=== PATIENT | male | born 1975 | race Caucasian/White ===

== ENCOUNTER 2020-01-26 07:29 | Inpatient (IN) | payer OTHER ==
[~2020-01-26] VITALS: Ht 182.9 cm; Wt 88.5 kg
--- NOTE | 2020-01-26 07:31 | NUR ---
TAKEN TO BED 11 VIA W/C
[2020-01-26 07:33] VITALS: BP 142/77
--- NOTE | 2020-01-26 07:44 | NUR ---
PT C/O ABD PAIN IN THE RT LOWER QUAD. PT STATES PAIN IS A 9/10 WHEN PALPATED. PT DENIES N/V/D. PAIN STARTED YESTEDAY. PT STATED HE TOOK A GAS MED LAST NIGHT; UNABLE TO RECALL NAME AND DOSAGE. LAST BM: 01/25/20 PM. BOWEL SOUNDS PRESENT IN ALL QUADS. RT LOWER QUAD IS TENDER TO TOUCH. ABD APPEARS TO BE ROUND, DISTENDED. SOFT TO TOUCH. NO PMHX NKA/NKDA
[2020-01-26] MEDS ORDERED: NACL 0.9% 1,000 ML IV SCH (07:55)
[2020-01-26] MEDS ORDERED: MORPHINE SULFATE 4 MG/ML SYR IVP ONE (07:55)
--- NOTE | 2020-01-26 08:15 | NUR ---
LAB AT BEDSIDE
[2020-01-26 08:21] LABS: BASOPHILS # (AUTO) 0.1 K/uL (0.00-0.22); BASOPHILS % (AUTO) 0.6 % (0.0-2.0); EOSINOPHILS # (AUTO) 0.1 K/uL (0-0.4); EOSINOPHILS % (AUTO) 0.9 % (0.0-4.0); HEMATOCRIT 43.8 % (36-52); HEMOGLOBIN 14.7 g/dL (12.0-18.0); LYMPHOCYTES # (AUTO) 1.7 K/uL (2.0-11.5); LYMPHOCYTES % (AUTO) 12.7 % (20.5-51.1); MEAN CORPUSCULAR HEMOGLOBIN 30 pg (27-31); MEAN CORPUSCULAR HGB CONC 33 g/dL (33-37); MEAN CORPUSCULAR VOLUME 89.5 fL (80-94); MONOCYTES # (AUTO) 1.2 K/uL (0.8-1.0); MONOCYTES % (AUTO) 8.6 % (1.7-9.3); NEUTROPHILS # (AUTO) 10.3 K/uL (1.8-7.7); NEUTROPHILS % (AUTO) 77.2 % (42.2-75.2); PLATELET COUNT (AUTO) 226 K/uL (140-450); RED CELL DISTRIBUTION WIDTH 14.2 % (11.6-13.7); WHITE BLOOD COUNT (AUTO) 13.3 K/uL (4.8-10.8)
--- NOTE | 2020-01-26 08:23 | NUR ---
20G IV PLACED TO RT AC, PT TOLERATED WELL
[2020-01-26 08:26] LABS: APPEARANCE,URINE CLEAR (CLEAR); BILIRUBIN,URINE NEGATIVE (NEGATIVE); BLOOD, URINE NEGATIVE (NEGATIVE); COLOR,URINE YELLOW (YELLOW); LEUKOCYTE ESTERASE ,URINE NEGATIVE (NEGATIVE); NITRITE, URINE NEGATIVE (NEGATIVE); UGLUCOSE NEGATIVE (NEGATIVE)
--- NOTE | 2020-01-26 08:26 | NUR ---
Angie stallworth in [facility] - 01/26/20 at 0901 by CHRISTIANE PT TAKEN TO CT VIA WHEELCHAIR.
--- NOTE | 2020-01-26 08:26 | NUR ---
PT TAKEN TO CT VIA RSHANNAN.
[2020-01-26] MEDS ORDERED: NACL 0.9% 1,000 ML IV ONE ×2 (08:35→09:10)
--- NOTE | 2020-01-26 08:39 | NUR ---
PT RETURNED FROM CT VIA [facility]
[2020-01-26 09:01] LABS: ALBUMIN 3.4 g/dL (3.4-5.0); ANION GAP 15.5 (8-16); CARBON DIOXIDE 24.6 mmol/L (21-32); CREATININE 1.1 mg/dL (0.6-1.3); POTASSIUM 4.1 mmol/L (3.5-5.1); TOTAL BILIRUBIN 0.3 mg/dL (0.0-1.0)
[2020-01-26] MEDS ORDERED: PIPERACILLIN/TAZOBACTAM 3.375 GM VIAL IV ONE (09:05)
[2020-01-26] MEDS ORDERED: PIPERACILLIN/TAZOBACTAM 3.375 GM in DEXTROSE 5% 50 ML IV ONE (09:05)
[2020-01-26] MEDS ORDERED: MORPHINE SULFATE 4 MG/ML SYR IVP PRN (09:10)
[2020-01-26] MEDS ORDERED: ONDANSETRON 4 MG/2 ML VIAL IVP PRN ×2 (09:10→11:20)
--- NOTE | 2020-01-26 09:25 | NUR ---
PT IS RESTING IN BED. EYES CLOSED. R/R EVEN AND UNLABORED. PT IS MOANING PERIODICALLY IN PAIN. MEDS WERE GIVEN FOR PAIN. PT STATES PAIN IS 7/10.
[2020-01-26 09:40] VITALS: BP 151/95
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
--- NOTE | 2020-01-26 09:48 | NUR ---
Patient will be admitted to care of DR. FIGUEROA. Admited to [facility]. Will go to room 120B. Belongings list completed. Report to CLARENCE LANDON.
--- NOTE | 2020-01-26 10:05 | NUR ---
SPOKE TO DR LUONG ABOUT PATIENT'S PAIN. PATIENT HAD RECEIVED MORPHINE 4MG IN THE ED AT 0830, BP 151/95 HR 95 RR 16 99% 98.1. DR LUONG GAVE TELEPHONE ORDER FOR MORPHINE 4MG IVP Q2H FOR SEVERE PAIN AND GIVE ONE DOSE NOW THEN Q2H THEREAFTER. TELEPHONE ORDER READ BACK AND CONFIRMED. ORDER CARRIED OUT.
[2020-01-26] MEDS: MORPHINE SULFATE 4 MG/ML SYR IVP PRN (10:18)
--- NOTE | 2020-01-26 10:20 | NUR ---
SPOKE TO DR. COOL. CONSENT FORM OBTAINED AND SIGNED FOR LAPAROSCOPIC WITH POSSIBLE OPEN APPENDECTOMY.
--- NOTE | 2020-01-26 10:45 | NUR ---
PATIENT TO OR IN STABLE CONDITION. WILL CONTINUE TO MONITOR.
[2020-01-26] MEDS ORDERED: KETOROLAC 30 MG/ML VIAL ONE (10:58)
[2020-01-26] MEDS ORDERED: PROPOFOL 200 MG/20 ML VIAL IV ONE (10:58)
[2020-01-26] MEDS ORDERED: HYDROmorphone PFS 2 MG/ML SYR ONE (10:58)
[2020-01-26] MEDS ORDERED: ONDANSETRON 4 MG/2 ML VIAL ONE (10:58)
[2020-01-26] MEDS ORDERED: SUCCINYLCHOLINE CHLORIDE 200 MG/10 ML VIAL IVP ONE (10:58)
[2020-01-26] MEDS ORDERED: DESFLURANE 240 ML BTL INH ONE (10:58)
[2020-01-26] MEDS ORDERED: DEXAMETHASONE 4 MG/ML VIAL ONE (10:58)
[2020-01-26] MEDS ORDERED: HYDROmorphone 1 MG/ML AMP IVP PRN (11:20)
[2020-01-26] MEDS ORDERED: BUPIVACAINE-MPF/EPI 0.5% 30 ML VIAL INJ ONE (12:23)
--- NOTE | 2020-01-26 12:50 | NUR ---
PATIENT CAME BACK FROM OR FOR LAP APPENDECTOMY. IN STABLE CONDITION. 97.9 84 16 128/58 92% ON RA. PATIENT DENIES OF PAIN AT THIS TIME. PATIENT CAME BACK WITH 3 INCISIONS ON ABDOMEN, DRESSING IN PLACE AND INTACT. BED IN LOW POSITION, CALL LIGHT WITHIN REACH. WILL CONTINUE TO MONITOR.
--- NOTE | 2020-01-26 14:00 | NUR ---
DC PLANNIN YRS OLD MALE PATIENT WAS ADMITTED FROM HOME WITH A DX OF APPENDICITIS. PT HAS NO MEDICAL HISTORY. CT ABD/PELVIS SHOWED ACUTE APPENDICITIS. ADMINISTERED IVF IV ABX WITH AND PAIN MANAGEMENT CONSULTED WITH SURGEON DR COOL FOR POSSIBLE APPENDECTOMY. DC PLAN TO GO HOME WHEN STABLE CM TO FOLLOW Addendum: 01/29/20 at 1207 by Jailene Patel CM DC PLANNING: S/P POD#2 MISAEL APPY , C/O ABD PAIN ADVANCED DIET TO SOFT DIET ENCOURAGE OOB/AMBULATE AND TO US FREQUENT INCENTIVE SPIROMETER. ORDERED KUB FOR S/P SURGERY AND ABD PAIN. DC PLAN TO GO HOME WHEN STABLE CM TO FOLLOW
--- NOTE | 2020-01-26 14:10 | NUR ---
PATIENT IS RESTING COMFORTABLY IN BED. INCISION SITES COVER WITH DRESSING, SCANT AMOUNT OF DRAINAGE NOTED, NO ACTIVE BLEEDING. VITALS REMAIN WNL. 98.4 92 18 116/75 91% RA. PATIENT DENIES ANY PAIN AT THIS TIME. CALL LIGHT WITHIN REACH. ENCOURAGED TO USE CALL LIGHT NEEDED. WILL CONTINUE TO MONITOR.
[2020-01-26] MEDS: PIPERACILLIN/TAZOBACTAM 4.5 GM in DEXTROSE 5% 100 ML IV SCH ×2 (17:32→23:07)
--- NOTE | 2020-01-26 17:32 | NUR ---
PATIENT IS RESTING COMFORTABLY IN BED. EASILY AROUSABLE. FOLLOWS COMMAND. DENIES OF ANY PAIN AT THIS TIME. ZOSYN ADMINISTERED IVPB ORDERED. CALL LIGHT WITHIN REACH. WILL CONTINUE TO MONITOR.
--- NOTE | 2020-01-26 18:30 | NUR ---
PATIENT IS AWAKE AND ALERT. SITTING COMFORTABLY IN BED. PATIENT TOLERATED FULL LIQUID DIET WELL. NO NOTED DISTRESS. PATIENT C/O PAIN BUT TOLERABLE. DRESSINGS CLEAN AND INTACT. CALL LIGHT WITHIN REACH. WILL CONTINUE TO MONITOR.
--- NOTE | 2020-01-26 19:27 | NUR ---
ENDORSED PATIENT TO NIGHT NURSE. PATIENT IN STABLE CONDITION.
--- NOTE | 2020-01-26 19:28 | NUR ---
RECEIVED REPORT FROM DAY SHIFT NURSE. PT IS SITTING IN BED WITH HOB SLIGHTLY ELEVATED. PT AWAKE, ALERT, AND ORIENTED. RESPIRATIONS ARE EVEN AND UNLABORED TO ROOM AIR. SKIN IS WARM AND DRY. ABDOMEN IS SOFT AND NON-TENDER. S/P LAP APPENDECTOMY EARLIER TODAY. 3 INCISION SITES NOTED ON ABDOMEN. DRESSING IS DRY AND INTACT. NO S/SX OF INFECTION NOTED. IV ACCESS ON R AC G20 PATENT AND INTACT. IVF INFUSING WELL. PLAN OF CARE DISCUSSED. PT VERBALIZED UNDERSTANDING. PT DENIES ANY PAIN OR DISCOMFORT AT THIS TIME. SAFETY MEASURES IN PLACE. CALL LIGHT WITHIN REACH. WILL CONTINUE TO MONITOR.
--- NOTE | 2020-01-26 20:58 | NUR ---
ROUNDS MADE. PT IN BED WATCHING TV. DENIES ANY PAIN OR DISCOMFORT AT THIS TIME. PT PROVIDED WITH JELLO REQUESTED. CALL LIGHT WITHIN REACH. WILL CONTINUE TO MONITOR.
[2020-01-26] MEDS: MORPHINE SULFATE 2 MG/ML SYR IVP PRN (22:10)
--- NOTE | 2020-01-26 22:10 | NUR ---
PT COMPLAINS OF ABD PAIN 02/26. PRN PAIN MEDICATION GIVEN ORDERED. WILL CONTINUE TO MONITOR.
--- NOTE | 2020-01-26 23:50 | NUR ---
VITAL SIGNS STABLE. SCHEDULED MEDS GIVEN ORDERED. NO COMPLAINS OF PAIN. PT KEPT COMFORTABLE. SAFETY MEASURES IN PLACE. CALL LIGHT WITHIN REACH. WILL CONTINUE TO MONITOR.
[2020-01-27] VITALS: BP 111/70
--- NOTE | 2020-01-27 01:54 | NUR ---
PT ASLEEP. RESPIRATIONS EVEN AND UNLABORED. NOT IN DISTRESS. PT KEPT COMFORTABLE. SAFETY MEASURES IN PLACE. CALL LIGHT WITHIN REACH. WILL CONTINUE TO MONITOR.
[2020-01-27] MEDS: MORPHINE SULFATE 2 MG/ML SYR IVP PRN ×2 (03:33→08:20)
--- NOTE | 2020-01-27 03:33 | NUR ---
PT COMPLAINS OF ABD PAIN. PRN PAIN MEDICATION GIVEN ORDERED. WILL CONTINUE TO MONITOR.
[2020-01-27] MEDS: PIPERACILLIN/TAZOBACTAM 4.5 GM in DEXTROSE 5% 100 ML IV SCH ×3 (05:04→17:17)
--- NOTE | 2020-01-27 05:08 | NUR ---
SCHEDULED ANTIBIOTIC GIVEN ORDERED. NO COMPLAINS OF PAIN MADE AT THIS TIME. CALL LIGHT WITHIN REACH. WILL CONTINUE TO MONITOR.
--- NOTE | 2020-01-27 07:23 | NUR ---
ENDORSED TO DAY SHIFT NURSE FOR CONTINUITY OF CARE. PATIENT IN STABLE CONDITION.
--- NOTE | 2020-01-27 07:24 | NUR ---
RECEIVED PATIENT FROM LEAN COACH NURSE FOR CONTINUITY OF CARE. PATIENT IS AAOX4. KAZAKH SPEAKING. RESPIRATIONS EVEN AND UNLABORED, ROOM AIR. VISIBLE CHEST RISE AND FALL NOTED. ON MED-SURGE. ABDOMEN SOFT AND NONTENDER. ON A FULL LIQUID DIET. SKIN WARM AND S/P LAP APPENDECTOMY. 3 INCISIONS NOTED WITH BANDAID COVERINGS. IV ON LEFT AC G20, SALINE LOCK. UNIVERSAL FALL PRECAUTION. BED IN LOW POSITION. CALL LIGHT IS WITHIN REACH. WILL CONTINUE TO MONITOR.
[2020-01-27 08:00] VITALS: BP 105/58
--- NOTE | 2020-01-27 09:28 | NUR ---
EMERGENCY WORKER NOTE: Basic Screen: Yes High Risk DC Screen [place]: DEMAR CESPEDES Home Relationship: MOTHER Pre-Admission Living Arrangements: Lives with Other Prior ADL Independent Current Home Health Name/Tel: N/A Current DME/02 Name/Tel: N/A Current Hospice Name/Tel: N/A Current Dialysis Name/Tel: N/A Healthcare Decision Maker: Patient Advance Directive No Physician Orders for Life Sustaining Treatment Form No Patient/Family Have Educational Needs No Discipline: Case Mgt/Social Svcs Tentative Discharge Plan/Destination: No Needs Identified Will require assistance post discharge: No Referred to Manager Environmental Services: No Tentative Discharge Plan Summary: PATIENT IS A 44-YEAR-OLD MALE ADMITTED FOR ACUTE APPENDICITIS. PATIENT HAS NO PERTINENT PMHX. PATIENT WAS ADMITTED FROM HOME WHERE HE LIVES ALONE. SW CONTACTED PATIENT'S MOTHER: DEMAR CESPEDES [phone]. PER DEMAR, PATIENT IS INDEPENDENT WITH ADLS AND IS ALERT/ORIENTED AT BASELINE. DEMAR REPORTED NO HISTORY OF SUBSTANCE ABUSE OR MENTAL HEALTH. TENTATIVE DISCHARGE PLAN IS FOR PATIENT TO RETURN HOME. NO FURTHER NEEDS IDENTIFIED. Signature: MOOKIE CHRISTIAN Date: Jan 27, 2020 Time: 09:26
--- NOTE | 2020-01-27 09:30 | NUR ---
C/O ABDOMINAL PAIN OF /10. PATIENT IS MOANING AND FACIAL GRIMACING. GIVEN MORPHINE IVP. EXPLAINED MEDICATION. WILL REASSESS FOR PAIN
[2020-01-27] MEDS: MORPHINE SULFATE 4 MG/ML SYR IVP PRN ×4 (10:27→20:53)
--- NOTE | 2020-01-27 10:27 | NUR ---
GIVEN MORPHINE FOR ABDOMINAL PAIN OF 03/29. BP IS 131/78, HR 84, O2SAT 97%. EXPLAINED MEDICATION. WILL REASSESS FOR PAIN
--- NOTE | 2020-01-27 10:46 | NUR ---
PATIENT HAS BEEN SCREENED AND CATEGORIZED LOW NUTRITION RISK. PATIENT WILL BE SEEN WITHIN 7 DAYS OF ADMISSION. 02/01/[address]
--- NOTE | 2020-01-27 11:16 | NUR ---
ROSELYN HORN VIA IVPB. PATIENT ASLEEP. BED IN LOW POSITION. CALL LIGHT IS WITHIN REACH. WILL CONTINUE TO MONITOR.
--- NOTE | 2020-01-27 13:05 | NUR ---
GIVEN MORPHINE FOR 9/10 ABDOMINAL PAIN. PATIENT IS MOANING AND RESTLESS. RESP 20. BED IN LOW POSITION. CALL LIGHT IS WITHIN REACH. WILL REASSESS PAIN
--- NOTE | 2020-01-27 13:38 | NUR ---
PER DR. ALVIN RAND, PATIENT WILL STAY ONE MORE DAY UNTIL PAIN IS CONTROLLED.
--- NOTE | 2020-01-27 14:16 | NUR ---
LAB AT BESIDE. TRYING TO GET BLOOD SAMPLE, PATIENT IS VERY HARD STICK Addendum: 01/27/20 at 1438 by Princess Helena John RN LAB WAS ABLE TO DRAW BLOOD.
--- NOTE | 2020-01-27 14:36 | NUR ---
WOUND ASSESSMENT DONE. JAEL INTACT TO 3 INCISIONS. CLEANED WITH NS, PAT DRIED, NEW BANDAID APPLIED. PATIENT TOLERATED FAIRLY. PATIENT AWARE ABOUT THE PLAN THAT HE WILL STAY ONE MORE NIGHT UNTIL PAIN IS CONTROLLED. PATIENT VERBALIZED UNDERSTANDING.
[2020-01-27 14:37] LABS: BASOPHILS # (AUTO) 0.1 K/uL (0.00-0.22); BASOPHILS % (AUTO) 0.5 % (0.0-2.0); HEMATOCRIT 41.8 % (36-52); LYMPHOCYTES # (AUTO) 1.2 K/uL (2.0-11.5); LYMPHOCYTES % (AUTO) 7.6 % (20.5-51.1); MEAN CORPUSCULAR HEMOGLOBIN 30 pg (27-31); MEAN CORPUSCULAR HGB CONC 34 g/dL (33-37); MEAN CORPUSCULAR VOLUME 89.6 fL (80-94); MONOCYTES # (AUTO) 1.2 K/uL (0.8-1.0); MONOCYTES % (AUTO) 7.7 % (1.7-9.3); NEUTROPHILS # (AUTO) 13.5 K/uL (1.8-7.7); NEUTROPHILS % (AUTO) 84.2 % (42.2-75.2); PLATELET COUNT (AUTO) 228 K/uL (140-450); RED BLOOD CELL COUNT(AUTO) 4.66 MIL/uL (4.20-6.10); RED CELL DISTRIBUTION WIDTH 14.2 % (11.6-13.7)
[2020-01-27 14:48] LABS: ALBUMIN 2.9 g/dL (3.4-5.0); ANION GAP 11.3 (8-16); CARBON DIOXIDE 27.7 mmol/L (21-32); CREATININE 1.2 mg/dL (0.6-1.3)
[2020-01-27 16:00] VITALS: BP 146/82
--- NOTE | 2020-01-27 16:26 | NUR ---
PATIENT IS ASLEEP AT THIS TIME. VISIBLE CHEST RISE AND FALL NOTED. BED IN LOW POSITION. CALL LIGHT IS WITHIN REACH. WILL CONTINUE TO MONITOR
--- NOTE | 2020-01-27 17:18 | NUR ---
ROSELYN HORN VIA IVPB. GIVEN MORPHINE IVP FOR ABD PAIN OF 03/29. RESP 18, UNLABORED. WILL REASSESS FOR PAIN.
--- NOTE | 2020-01-27 18:19 | NUR ---
PAIN REASSESSMENT. PATIENT IS ASLEEP.
--- NOTE | 2020-01-27 19:13 | NUR ---
ENDORSED PATIENT TO THE STEM MOUNTER NURSE FOR CONTINUITY OF CARE. PATIENT IS IN STABLE CONDITION.
--- NOTE | 2020-01-27 19:32 | NUR ---
RECEIVED PT ASLEEP, EASILY AROUSABLE, DENIES PAIN, ABDOMINAL INCISION X3 COVERED WITH DRESSING, DRY AND INTACT, NO SIGNS OF BLEEDING OR DISCHARGE NOTED, PLAN OF CARE DISCUSSED, SAFETY MEASURES IN PLACE, CALL LIGHT WITHIN REACH.
--- NOTE | 2020-01-27 20:55 | NUR ---
PT FOUND BY KILO JAIMES LYING DOWN ON THE FLOOR, PT AAOX4, STATED HIS BACK IS ACHY AND LYING DOWN ON THE COLD FLOOR MADE IT BETTER, ASSISTED BACK TO BED, VITAL SIGNS TAKEN:BP-144/85, HR-103, RR-25, SAT-91%, PUT ON O2 2L NC, MEDICATED PRN WITH MORPHINE IVP FOR PAIN, ABDOMINAL DRESSING DRY AND INTACT, BED ALARM ON, REINFORCED TO CALL FOR ASSISTANCE, VERBALIZED UNDERSTANDING.
--- NOTE | 2020-01-27 21:45 | NUR ---
PT ASLEEP, NO DISTRESS NOTED, REPORT GIVEN TO SHIRLEY PATEL FOR CONTINUITY OF CARE.
--- NOTE | 2020-01-27 21:45 | NUR ---
RECD RESTING IN BED ASLEEP BUT EASILY WAKES UP WHEN NAME CALLED. IV OF NS INFUSING AT 10 ML/HR, LEFT AC G20. PATIENT REFUSING TO PUT ON HOSPITAL GOWN. NOTED TATTOOS ALL OVER THE BODY. S/P LAP CHOLECYSTOSTOMY, INCISION IN THE ABDOMEN (3) WITH DRESSING ALL DRY AND INTACT. TOLERATING FULL LIQUID DIET, VOIDING WELL. NO APPEARANCE OF PAIN NOTED 0/10.
--- NOTE | 2020-01-28 | NUR ---
SLEEPING COMFORTABLY IN BED.
[2020-01-28] MEDS: PIPERACILLIN/TAZOBACTAM 4.5 GM in DEXTROSE 5% 100 ML IV SCH ×5 (00:02→23:33)
--- NOTE | 2020-01-28 02:00 | NUR ---
RESTING IN BED, WAKEN UP PATIENT. INQUIRED IF HE IS PASSING GAS, ABDOMEN SEEMS DISTENDED BUT WITH POSITIVE BOWEL SOUNDS. STATED HE IS JUST BURPING. ENCOURAGED TO AMBULATED MORE AFTER BREAKFAST IN THE MORNING.
[2020-01-28 02:55] VITALS: BP 140/88
[2020-01-28] MEDS: MORPHINE SULFATE 4 MG/ML SYR IVP PRN ×4 (02:55→21:38)
--- NOTE | 2020-01-28 06:21 | NUR ---
TEMPERATURE - 101.5F, MEDICATED WITH TYLENOL PER MD ORDER. COOLING MEASURES GIVEN. Addendum: 01/28/20 at 0802 by Dolores Lozada LVN CORRECTION: THIS CHARTING IS NOT FOR THIS PATIENT.
--- NOTE | 2020-01-28 06:30 | NUR ---
STILL SLEEPING COMFORTABLY IN BED. COMPLAINT OF ABDOMINAL PAIN ATTENDED PROMPTLY, MEDICATED ORDERED. WILL ENDORSE TO AM SHIFT NURSE FOR CONTINUITY OF CARE.
[2020-01-28 06:38] VITALS: BP 140/93
[2020-01-28 07:05] LABS: BASOPHILS # (AUTO) 0.1 K/uL (0.00-0.22); BASOPHILS % (AUTO) 0.5 % (0.0-2.0); EOSINOPHILS % (AUTO) 0.1 % (0.0-4.0); HEMATOCRIT 42.4 % (36-52); HEMOGLOBIN 14.5 g/dL (12.0-18.0); LYMPHOCYTES # (AUTO) 1.5 K/uL (2.0-11.5); LYMPHOCYTES % (AUTO) 8.5 % (20.5-51.1); MEAN CORPUSCULAR HEMOGLOBIN 31 pg (27-31); MEAN CORPUSCULAR HGB CONC 34 g/dL (33-37); MEAN CORPUSCULAR VOLUME 89.2 fL (80-94); MONOCYTES # (AUTO) 1.5 K/uL (0.8-1.0); MONOCYTES % (AUTO) 8.9 % (1.7-9.3); NEUTROPHILS # (AUTO) 14.2 K/uL (1.8-7.7); PLATELET COUNT (AUTO) 258 K/uL (140-450); RED BLOOD CELL COUNT(AUTO) 4.75 MIL/uL (4.20-6.10); RED CELL DISTRIBUTION WIDTH 14.2 % (11.6-13.7); WHITE BLOOD COUNT (AUTO) 17.3 K/uL (4.8-10.8)
--- NOTE | 2020-01-28 07:25 | NUR ---
RECEIVED PATIENT FROM SPEEDBOAT DRIVER NURSE FOR CONTINUITY OF CARE. PATIENT IS AAOX4. JAPANESE SPEAKING. RESPIRATIONS EVEN AND UNLABORED, ROOM AIR. VISIBLE CHEST RISE AND FALL NOTED. ON MED-SURGE. ABDOMEN SOFT. ON A FULL LIQUID DIET. SKIN WARM AND S/P LAP APPENDECTOMY. 3 INCISIONS NOTED WITH DRESSING COVERINGS. IV ON LEFT AC G20, NS AT 10 ML/HR, KVO. UNIVERSAL FALL PRECAUTION. BED IN LOW POSITION. CALL LIGHT IS WITHIN REACH. WILL CONTINUE TO MONITOR.
[2020-01-28 08:16] LABS: ANION GAP 14.1 (8-16); CARBON DIOXIDE 26.9 mmol/L (21-32)
[2020-01-28 08:17] LABS: CREATININE 1.1 mg/dL (0.6-1.3)
[2020-01-28 08:23] LABS: ALBUMIN 2.6 g/dL (3.4-5.0); TOTAL BILIRUBIN 1.1 mg/dL (0.0-1.0)
--- NOTE | 2020-01-28 09:47 | NUR ---
PATIENT IS SLEEPING AT THIS TIME. NO SIGNS OF DISTRESS NOTED. BED IN LOW POSITION. CALL LIGHT IS WITHIN REACH. WILL CONTINUE TO MONITOR.
--- NOTE | 2020-01-28 12:09 | NUR ---
HANG ZOSYN VIA IVPB. EXPLAINED MEDICATION. WILL CONTINUE TO MONITOR.
--- NOTE | 2020-01-28 12:56 | NUR ---
PT AMBULATING AROUND THE UNIT; DENIES DIZZINESS
--- NOTE | 2020-01-28 13:19 | NUR ---
HANG NS AT 100 ML PER HOUR PER MD ORDER.
[2020-01-28] MEDS: NACL 0.9% 1,000 ML IV SCH ×2 (13:27→23:34)
--- NOTE | 2020-01-28 15:00 | NUR ---
PATIENT ASLEEP AT THIS TIME. NO SIGNS OF DISTRESS NOTED. BED IN LOW POSITION. CALL LIGHT IS WITHIN REACH. WILL CONTINUE TO MONITOR
[2020-01-28 16:00] VITALS: BP 142/82
--- NOTE | 2020-01-28 16:18 | NUR ---
PATIENT STATED PAIN 8 OUT OF 10. MORPHINE 4 MG WAS ADMINISTERED. PATIENT TOLERATED MEDICATION WELL.
--- NOTE | 2020-01-28 17:52 | NUR ---
PIGGYBACK ZOSYN INFUSING AT 200 ML PER HOUR PER MD ORDER.
--- NOTE | 2020-01-28 18:35 | NUR ---
PATIENT IS EATING DINNER AT THIS TIME. HE STATED HE IS TRYING TO EAT MUCH HE COULD.
--- NOTE | 2020-01-28 19:11 | NUR ---
ENDORSED PATIENT TO THE WAFER POLISHING LEAD WORKER NURSE FOR CONTINUITY OF CARE. PATIENT IS AT THE RESTROOM TRYING TO HAVE A BM PER PATIENT. PATIENT IS IN STABLE CONDITION.
--- NOTE | 2020-01-28 19:35 | NUR ---
RECEIVED REPORT FROM AM RN REGARDING THE PT FOR CONTINUITY OF CARE. RECEIVED PATIENT ASLEEP BUT EASY TO AROUSED. NO C/O PAIN AT THIS TIME. S/P LAP APPY,DAY 2 WITH 3 TROCAR SITES DRESSING ALL C/D/I. PATIENT ABDOMEN IS DISTENDED AND RIGID. BOWEL SOUNDS IS HYPOACTIVE. PER PATIENT HE HASN'T PASS GAS AND NO BM YET BUT BURPING SOMETIMES. EDUCATED THE PATIENT TO GET OOB AND WALK IN THE HALLWAY AND MADE AWARE OF THE BENEFITS OF GETTING OOB AND MOVING INSTEAD OF JUST LAYING IN BED. PT VERBALIZED UNDERSTANDING AND STATED HE WALKED IN THE HALLWAY EARLIER X1. PT IS ON FULL LIQUID DIET BUT NOT EATING MUCH PER DAY RN. I ASKED THE PATIENT WHY IS HE NOT EATING PER PATIENT HE FEELS BLOATED AND FULL. WILL CALL MD FOR PRN MEDS FOR BLOATING. IVF INFUSING ORDERED. PT VERBALIZED UNDERSTANDING WITH THE POC. CALL LIGHT WITHIN REACH.WILL CONTINUE POC.
--- NOTE | 2020-01-28 21:40 | NUR ---
PT COMPLAINING OF ABDOMINAL PAIN 04/29, PRN MORPHINE 4 MG IV GIVEN ORDERED. BP- 142/94, HR-101. NOTED ALSO THAT THE PATIENT IS COUGHING AND STATED THAT HE IS COUGHING OUT CLEAR PHLEGM,SMALL AMOUNT. GOT AN ORDER FOR INCENTIVE SPIROMETER AND EDUCATED THE PT ON HOW TO USE IT AND WHAT IS THE PURPOSE OF IT. INSTRUCTED THE PT TO USE IT AT LEAST 10X EVERY HOUR WHILE HE IS AWAKE. PT ALSO DID A RETURN DEMONSTRATION AND WENT UP TO 500 ML. CALL LIGHT WITHIN REACH. WILL CONTINUE POC.
--- NOTE | 2020-01-28 22:00 | NUR ---
PT FELL ASLEEP AFTER GIVING THE MORPHINE. RE- ASSESSED PAIN PER PT ITS BETTER AND WENT DOWN TO 4/10 AND TOLERABLE AT THE MOMENT. WILL CONTINUE POC. CALL LIGHT IN REACH.
[2020-01-29] VITALS: BP 147/91
--- NOTE | 2020-01-29 00:50 | NUR ---
PT C/O FEELING BLOATED. CALLED THE EXCHANGE AND DR TANG IS FRONT DESK SPECIALIST. SPOKE WITH MD AND MADE AWARE OF THE PT COMPLAINT AND ALSO MADE AWARE THAT THE PT IS COUGHING MORE AND COUGHING OUT CLEAR MUCUS. MD AWARE AND GAVE A PRN ORDER FOR THE BLOATING AND PT COUGH.
[2020-01-29] MEDS ORDERED: guaiFENesin DM 200/20 MG-10 ML 10 ML UDC PO PRN (00:55)
[2020-01-29] MEDS ORDERED: SIMETHICONE 80 MG TAB.CHEW PO PRN (01:05)
[2020-01-29] MEDS ORDERED: CRUSHER, PILL MC ONE (01:56)
--- NOTE | 2020-01-29 02:00 | NUR ---
GAVE SIMETHICONE AND RUBITUSSIN TO THE PT AND WILL RE ASSESS LATER. SAFETY MEASURES IN PLACED.
--- NOTE | 2020-01-29 04:00 | NUR ---
PT ASLEEP AT THIS TIME. NOT IN ANY DISTRESS. SAFETY MEASURES IN PLACED. CALL LIGHT WITHIN REACH.
[2020-01-29] MEDS: PIPERACILLIN/TAZOBACTAM 4.5 GM in DEXTROSE 5% 100 ML IV SCH ×3 (05:45→17:10)
--- NOTE | 2020-01-29 06:25 | NUR ---
SAW PT SITTING UP AT THE EDGE OF THE BED EARLIER AND STATED THAT THE SIMETHICONE HELP AND STATED THAT HE IS BURPING AND PASSING GAS. PT STABLE AND NO COMPLAIN AT THIS TIME. ALL NEEDS ATTENDED. CALL LIGHT WITHIN REACH. WILL ENDORSE THE PT TO THE ONCOMING RN FOR CONTINUITY OF CARE.
[2020-01-29 06:58] LABS: BASOPHILS # (AUTO) 0.1 K/uL (0.00-0.22); BASOPHILS % (AUTO) 0.6 % (0.0-2.0); EOSINOPHILS # (AUTO) 0.1 K/uL (0-0.4); EOSINOPHILS % (AUTO) 0.6 % (0.0-4.0); HEMOGLOBIN 14.6 g/dL (12.0-18.0); LYMPHOCYTES # (AUTO) 1.1 K/uL (2.0-11.5); LYMPHOCYTES % (AUTO) 7.3 % (20.5-51.1); MEAN CORPUSCULAR HEMOGLOBIN 30 pg (27-31); MEAN CORPUSCULAR HGB CONC 34 g/dL (33-37); MEAN CORPUSCULAR VOLUME 89.4 fL (80-94); MONOCYTES # (AUTO) 1.3 K/uL (0.8-1.0); MONOCYTES % (AUTO) 8.9 % (1.7-9.3); NEUTROPHILS # (AUTO) 12.1 K/uL (1.8-7.7); NEUTROPHILS % (AUTO) 82.6 % (42.2-75.2); PLATELET COUNT (AUTO) 275 K/uL (140-450); RED BLOOD CELL COUNT(AUTO) 4.81 MIL/uL (4.20-6.10); RED CELL DISTRIBUTION WIDTH 14.1 % (11.6-13.7); WHITE BLOOD COUNT (AUTO) 14.6 K/uL (4.8-10.8)
[2020-01-29 07:08] LABS: ALBUMIN 2.5 g/dL (3.4-5.0); CARBON DIOXIDE 28.2 mmol/L (21-32); POTASSIUM 4.2 mmol/L (3.5-5.1); TOTAL BILIRUBIN 0.7 mg/dL (0.0-1.0)
--- NOTE | 2020-01-29 07:15 | NUR ---
RECEIVED REPORT FROM ADULT CAREGIVER NURSE. PT IS CURRENTLY LAYING IN BED WATCHING TV WITH NO NO SIGNS OF DISTRESS NOTED. PT IS ALERT ORIENTATED TO PERSON AND PLACE. RESPIRATIONS ARE EVEN AND UNLABORED ON ROOM AIR. SKIN IS INTACT WITH 3 SURGICAL INCISIONS, IV PATENT, ASYMPTOMATIC, AND INFUSING PER ORDER. SAFETY MEASURES IN PLACE, BED IS IN LOW SEMI-FOWLERS POSITION, CALL LIGHT WITHIN REACH AND WILL CONTINUE TO MONITOR. Addendum: 01/29/20 at 0731 by Kiki Montoya RN AOX4
[2020-01-29 08:00] VITALS: BP 141/89
[2020-01-29] MEDS: NACL 0.9% 1,000 ML IV SCH ×2 (08:46→11:59)
--- NOTE | 2020-01-29 08:48 | NUR ---
PT IS CURRENTLY LAYING DOWN IN BED WITH BREAKFAST AT BEDSIDE. STOMACH IS A LITTLE DISTENDED, PT DOES NOT WANT ANY MEDICATION FOR GAS AT THIS TIME. SAFETY MEASURES IN PLACE AND WILL CONTINUE TO MONITOR.
--- NOTE | 2020-01-29 10:13 | NUR ---
PT JUST VOMITED ALL OVER THE FLOOR, EMESIS WAS DARK BROWN/BLACK COLOR AND A LIQUID CONSISTENCY. PT STATES THAT HE FEELS BETTER AFTER THROWING UP. SALTINES WERE GIVEN. SAFETY MEASURES IN PLACE AND WILL CONTINUE TO MONITOR.
[2020-01-29] MEDS ORDERED: METOCLOPRAMIDE 10 MG/2 ML INJ VIAL IVP PRN (10:35)
--- NOTE | 2020-01-29 10:48 | NUR ---
SPOKE TO DR. LUONG REGARDING STATUS OF PATIENT. ORDERED X-RAY OF ABDOMEN ONE VIEW, REGLAN FOR NAUSEA AND VOMITING, AND WANTS CLIENT TO BE NPO. SAFETY MEASURES IN PLACE AND WILL CONTINUE TO MONITOR.
--- NOTE | 2020-01-29 11:47 | NUR ---
X-RAY OF ABDOMEN HAS BEEN TAKEN PT TOLERATED WELL. WILL FOLLOW UP WITH DR. LUONG
--- NOTE | 2020-01-29 12:00 | NUR ---
ADMINISTERED MEDICATIONS PER ORDER AND TOLERATED WELL. PT STATES THAT HE IS FEELING BETTER AND WANTS TO SLEEP. SAFETY MEASURES IN PLACE AND WILL CONTINUE TO MONITOR.
[2020-01-29] MEDS ORDERED: PROMETHAZINE 25 MG/ML VIAL IM PRN (12:10)
[2020-01-29] MEDS: POTASSIUM CHL 20 MEQ/D5-1/2NS 1,000 ML IV SCH ×2 (13:00→22:05)
--- NOTE | 2020-01-29 13:00 | NUR ---
ADMINISTERED MEDICATIONS PER ORDER AND TOLERATED WELL. PT IS CURRENTLY SLEEPING WITH NO SIGNS OF DISTRESS AT THIS TIME. SAFETY MEASURES IN PLACE AND WILL CONTINUE TO MONITOR.
--- NOTE | 2020-01-29 14:04 | NUR ---
PT JUST FINISHED WALKING AROUND BACK OF UNIT. GAIT WAS STEADY AND USED IV POLE FOR ASSISTANCE. SAFETY MEASURES IN PLACE AND WILL CONTINUE TO MONITOR.
[2020-01-29 16:00] VITALS: BP 142/82
--- NOTE | 2020-01-29 16:54 | NUR ---
PT IS CURRENTLY SLEEPING IN BED WITH NO SIGNS OF DISTRESS AT THIS TIME. SAFETY MEASURES IN PLACE AND WILL CONTINUE TO MONITOR.
--- NOTE | 2020-01-29 17:12 | NUR ---
ADMINISTERED MEDICATIONS PER ORDER AND TOLERATED WELL. PT IS CURRENTLY LAYING IN BED AWAKE AND STATES THAT HE FEELS BETTER. SAFETY MEASURES IN PLACE AND WILL CONTINUE TO MONITOR.
--- NOTE | 2020-01-29 18:40 | NUR ---
PT VOMITED AND PHENERGAN WAS GIVEN FOR NAUSEA AND VOMITING. PT STATES THAT HE DOES NOT FEEL ANY PAIN AT THIS TIME. SAFETY MEASURES IN PLACE AND WILL CONTINUE TO MONITOR.
--- NOTE | 2020-01-29 19:25 | NUR ---
RECEIVED BEDSIDE SHIFT REPORT FROM [facility] NURSE RODRÍGUEZ FOR CONTINUITY OF CARE. PATIENT RESTING IN BED NO SIGNS OF DISTRESS NOTED. RESPIRATIONS EVEN AND UNLABORED ON RA. IV SITE ASSESSED AND PATENT. SAFETY MEASURES IN PLACE AND CALL LIGHT WITHIN REACH. ASSISTED PATIENT TO REPOSITION IN BED AND ELEVATED HOB SLIGHTLY. PATIENT TOLERATED WELL WILL CONTINUE TO MONITOR
--- NOTE | 2020-01-29 20:20 | NUR ---
PATIENT WAS ESCORTED BY RADIOLOGY STAFF FOR CT OF ABD WITHOUT CONTRAST. PATIENT LEFT THE UNIT IN STABLE CONDITION. NO SIGNS OF DISTRESS NOTED.
--- NOTE | 2020-01-29 20:30 | NUR ---
PATIENT RETURNED TO THE UNIT NO SIGNS OF DISTRESS NOTED. PATIENT PLACED IN BED. RESPIRATIONS EVEN AND UNLABORED ON RA. CALL LIGHT WITHIN REACH. WILL CONTINUE TO MONITOR
--- NOTE | 2020-01-29 22:05 | NUR ---
IV FLUIDS ASSESSED AND PRIOR BAG STILL INFUSING NO NEED TO CHANGE FLUID BAG AT THIS TIME WILL CONTINUE TO MONITOR
[2020-01-30] VITALS: BP 153/90
--- NOTE | 2020-01-30 | NUR ---
ADMINISTERED 0000 MEDICATION TO PATIENT. PATIENT TOLERATED WELL. NO SIGNS OF DISTRESS NOTED. WILL CONTINUE TO MONITOR
[2020-01-30] MEDS: PIPERACILLIN/TAZOBACTAM 4.5 GM in DEXTROSE 5% 100 ML IV SCH ×4 (00:26→18:00)
[2020-01-30] MEDS: POTASSIUM CHL 20 MEQ/D5-1/2NS 1,000 ML IV SCH ×2 (02:30→18:05)
--- NOTE | 2020-01-30 06:00 | NUR ---
ADMINISTERED 0600 MEDICATION. PATIENT TOLERATED WELL NO SIGNS OF DISTRESS NOTED WILL CONTINUE TO MONITOR
[2020-01-30 07:22] LABS: BASOPHILS % (AUTO) 0.2 % (0.0-2.0); EOSINOPHILS # (AUTO) 0.1 K/uL (0-0.4); EOSINOPHILS % (AUTO) 1.1 % (0.0-4.0); HEMATOCRIT 40.9 % (36-52); HEMOGLOBIN 13.9 g/dL (12.0-18.0); LYMPHOCYTES # (AUTO) 1.1 K/uL (2.0-11.5); LYMPHOCYTES % (AUTO) 8.6 % (20.5-51.1); MEAN CORPUSCULAR HEMOGLOBIN 31 pg (27-31); MEAN CORPUSCULAR HGB CONC 34 g/dL (33-37); MONOCYTES # (AUTO) 1.7 K/uL (0.8-1.0); MONOCYTES % (AUTO) 12.6 % (1.7-9.3); NEUTROPHILS # (AUTO) 10.2 K/uL (1.8-7.7); NEUTROPHILS % (AUTO) 77.5 % (42.2-75.2); PLATELET COUNT (AUTO) 273 K/uL (140-450); WHITE BLOOD COUNT (AUTO) 13.1 K/uL (4.8-10.8)
--- NOTE | 2020-01-30 07:25 | NUR ---
ENDORSED PATIENT TO DAYSHIFT NURSE FOR CONTINUITY OF CARE PATIENT IN STABLE CONDITION
--- NOTE | 2020-01-30 07:28 | NUR ---
RECEIVED BEDSIDE REPORT FROM CLARITY DEVELOPER RN FOR CONTINUITY OF CARE. PT IS AAOX4, COOPERATIVE AND ABLE TO AMBULATE. PT ON RA. PT SKIN IS INTACT ASIDE FROM S/P LAP APPI INCISIONS. PT HAS LEFT WRIST 24G INFUSING D5NS.45% W/ K20MEQ @ 100ML/HR. DISCUSSED POC WITH PT AND PT VERBALIZED UNDERSTANDING. ALL SAFETY MEASURES IN PLACE. BED IN LOW POSITION, CALL LIGHT WITHIN REACH.
[2020-01-30 08:00] VITALS: BP 151/102
[2020-01-30 08:01] LABS: ALBUMIN 2.4 g/dL (3.4-5.0); ANION GAP 14.1 (8-16); CARBON DIOXIDE 29.1 mmol/L (21-32); CREATININE 1.1 mg/dL (0.6-1.3); POTASSIUM 4.2 mmol/L (3.5-5.1); TOTAL BILIRUBIN 0.5 mg/dL (0.0-1.0)
--- NOTE | 2020-01-30 09:12 | NUR ---
ADMINISTERED MORNING MEDS. ALL NEEDS MET.
--- NOTE | 2020-01-30 11:34 | NUR ---
PT SLEEPING. ALL NEEDS MET. WILL CONTINUE TO ROUND FREQUENTLY ON PT
--- NOTE | 2020-01-30 13:20 | NUR ---
PT RESTING IN BED. DISCUSSED WITH HIM THAT HE NEEDS TO EAT AND TOLERATE HIS FOOD IN ORDER TO BE D/C. PT VERBALIZED UNDERSTANDING. WILL CONTINUE TO ROUND FREQUENTLY ON PT.
--- NOTE | 2020-01-30 13:36 | NUR ---
01/30/20 RD INITIAL ASSESSMENT COMPLETED PLEASE REFER TO NUTRITION ASSESSMENT UNDER CARE ACTIVITY FOR ESTIMATED NUTRITIONAL NEEDS. 1. CONTINUE CLEAR LIQUIDS DIET TOLERATED 2. RECOMMEND ENSURE CLEAR TID 3. WHEN PATIENT IS MEDICALLY STABLE CONSIDER ADVANCING TO BLAND DIET WITH ENSURE TID 4. ENCOURAGE PO INTAKE 5. RD TO FOLLOW-UP 2-3 DAYS,HIGH RISK DAVIDA AVILA RD
--- NOTE | 2020-01-30 15:42 | NUR ---
PT RESTING IN BED DRINKING A JUICE. ALL NEEDS MET.
[2020-01-30 16:00] VITALS: BP 140/85
--- NOTE | 2020-01-30 18:26 | NUR ---
PT WATCHING TV. ALL NEEDS MET.
--- NOTE | 2020-01-30 19:30 | NUR ---
OBTAINED BEDSIDE SHIFT REPORT FROM DAYSHIFT NURSE FOR CONTINUITY OF CARE. PATIENT AWAKE IN BED NO SIGNS OF DISTRESS NOTED. RESPIRATIONS EVEN AND UNLABORED ON RA. PATIENT STATES HE IS FEELING MUCH BETTER TODAY. INFORMED BY RN THAT LEFT HAND 24 GAUGE IV HAD TO BE REMOVED. SHE STATES THAT SHE TRIED TWICE AND CHARGE TRIED TWICE WITHOUT SUCCESS TO REINSERT IV. PER ASSISTANT KITCHEN MANAGER NURSE CALLED AND ASKED TO PLACE IV. PATIENT IS OK WITH NEW IV INSERTION WHENEVER ED NURSE ARRIVES. SAFETY MEASURES IN PLACE AND CALL LIGHT WITHIN REACH. WILL CONTINUE TO MONITOR
--- NOTE | 2020-01-30 19:46 | NUR ---
ENDORSED PT TO RIBBER FOR CONTINUITY OF CARE. PT IN STABLE CONDITION AT THIS TIME.
--- NOTE | 2020-01-30 20:10 | NUR ---
ED NURSE CAME TO INSERT NEW IV. AFTER 2 UNSUCCESSFUL ATTEMPTS AN IV WAS SUCCESSFULLY PLACED ON RIGHT LOWER FOOT 24GAUGE. PATIENT TOLERATED WELL NO SIGNS OF DISTRESS NOTED. CALL LIGHT WITHIN REACH WILL CONTINUE TO MONITOR
--- NOTE | 2020-01-30 22:40 | NUR ---
ROUNDING PATIENT RESTING. NO SIGNS OF DISTRESS NOTED. PATIENT EASILY AWAKENED. RESPIRATIONS EVEN AND UNLABORED ON RA. SAFETY MEASURES IN PLACE AND CALL LIGHT WITHIN REACH. WILL CONTINUE TO MONITOR
[2020-01-31] VITALS: BP 135/63
[2020-01-31] MEDS: PIPERACILLIN/TAZOBACTAM 4.5 GM in DEXTROSE 5% 100 ML IV SCH ×2 (00:09→06:00)
--- NOTE | 2020-01-31 00:09 | NUR ---
ADMINISTERED 0000 MEDICATION TO PATIENT. PATIENT TOLERATED WELL. NO SIGNS OF DISTRESS NOTED. RESPIRATIONS EVEN AND UNLABORED ON RA. SAFETY MEASURES IN PLACE AND CALL LIGHT WITHIN REACH. WILL CONTINUE TO MONITOR
--- NOTE | 2020-01-31 02:35 | NUR ---
ROUNDING, PATIENT RESTING NO SIGNS OF DISTRESS NOTED. CALL LIGHT WITHIN REACH WILL CONTINUE TO MONITOR
[2020-01-31] MEDS: POTASSIUM CHL 20 MEQ/D5-1/2NS 1,000 ML IV SCH (04:05)
--- NOTE | 2020-01-31 04:30 | NUR ---
INFORMED BY LAB STAFF THAT THEY WERE UNABLE TO DRAW AM LABS ON PATIENT, HARD STICK. HE WILL SEND MORE EXPERIENCED COAGULATING BATH MIXER TO DRAW. ENDORSING TO AM NURSE LABS WILL BE LATE
--- NOTE | 2020-01-31 06:00 | NUR ---
ADMINISTERED LAST SCHEDULED ANTIBIOTIC FOR PATIENT. PATIENT TOLERATED WELL NO SIGNS OF DISTRESS NOTED WILL CONTINUE TO MONITOR
--- NOTE | 2020-01-31 07:20 | NUR ---
RECEIVED PT FROM TAPE RECORDER REPAIRER NURSE. PT IS CURRENTLY ASLEEP IN BED. RESPIRATIONS ARE CLEAR, UNLABORED ON ROOM AIR. SKIN IS INTACT WITH 3 SURGICAL INCISIONS AND DRESSING INTACT, IV PATENT ASYMPTOMATIC AND INFUSING PER ORDER. PT DOES NOT SHOW ANY SIGNS OF DISTRESS OR COMPLAINTS OF PAIN. SAFETY MEASURES IN PLACE AND WILL CONTINUE TO MONITOR.
--- NOTE | 2020-01-31 07:26 | NUR ---
ENDORSED PATIENT TO DAYSHIFT NURSE AT BEDSIDE FOR CONTINUITY OF CARE. PATIENT IN STABLE CONDITION
[2020-01-31 07:38] LABS: ALBUMIN 2.6 g/dL (3.4-5.0); ANION GAP 12.8 (8-16); CARBON DIOXIDE 27.4 mmol/L (21-32); POTASSIUM 4.2 mmol/L (3.5-5.1); TOTAL BILIRUBIN 0.5 mg/dL (0.0-1.0)
[2020-01-31 07:42] LABS: BASOPHILS % (AUTO) 0.4 % (0.0-2.0); EOSINOPHILS # (AUTO) 0.1 K/uL (0-0.4); EOSINOPHILS % (AUTO) 1.4 % (0.0-4.0); HEMOGLOBIN 13.7 g/dL (12.0-18.0); LYMPHOCYTES # (AUTO) 0.6 K/uL (2.0-11.5); LYMPHOCYTES % (AUTO) 7.2 % (20.5-51.1); MEAN CORPUSCULAR HEMOGLOBIN 31 pg (27-31); MEAN CORPUSCULAR HGB CONC 34 g/dL (33-37); MEAN CORPUSCULAR VOLUME 88.9 fL (80-94); MONOCYTES # (AUTO) 1.7 K/uL (0.8-1.0); MONOCYTES % (AUTO) 20.6 % (1.7-9.3); NEUTROPHILS % (AUTO) 70.4 % (42.2-75.2); PLATELET COUNT (AUTO) 332 K/uL (140-450); WHITE BLOOD COUNT (AUTO) 8.5 K/uL (4.8-10.8)
[2020-01-31 08:00] VITALS: BP 125/65
--- NOTE | 2020-01-31 08:20 | NUR ---
PT STATES THAT HE DOES NOT WANT TO EAT BREAKFAST UNTIL HE HAS A TIME THAT HE IS GOING HOME. PT STATED THAT HE WANTS TO BE PRESCRIBED ANTIBIOTICS WHEN HE IS SENT HOME AND GAVE HIS PREFERRED PHARMACY. SAFETY MEASURES IN PLACE AND WILL CONTINUE TO MONITOR.
--- NOTE | 2020-01-31 10:24 | NUR ---
PT IS CURRENTLY LAYING DOWN IN BED WITH NO SIGNS OF DISTRESS. PT IS CONTINUOUSLY ASKING WHEN HE GOING TO BE DISCHARGED. SAFETY MEASURES IN PLACE AND WILL CONTINUE TO MONITOR.
--- NOTE | 2020-01-31 11:11 | NUR ---
SPOKE TO DR. ELY AND STATED THAT PT CAN HAVE SOFT LOW FIBER DIET AND IF TOLERATED THEN CAN BE CLEARED FOR DISCHARGE.
--- NOTE | 2020-01-31 12:29 | NUR ---
ADMINISTERED LUNCH TRAY, PT STATED THAT HE WILL TRY AND EAT HIS FOOD IN ORDER TO GO HOME. SAFETY MEASURES IN PLACE AND WILL CONTINUE TO MONITOR.
--- NOTE | 2020-01-31 13:12 | NUR ---
PT IS CURRENTLY WALKING AROUND UNIT WITH STEADY GAIT. PT IS READY TO GO HOME HE STATED. SAFETY MEASURES IN PLACE AND WILL CONTINUE TO MONITOR.
--- NOTE | 2020-01-31 15:07 | NUR ---
PT CAME OUT OF ROOM TO SEE IF DR. JIMENEZ IS AVAILABLE FOR DISCHARGE. PT IS GETTING RESTLESS AND WOULD LIKE TO GO HOME SOON POSSIBLE. SAFETY MEASURES IN PLACE AND WILL CONTINUE TO MONITOR.
--- NOTE | 2020-01-31 16:40 | NUR ---
PT HAS BEEN DISCHARGED TO HOME, AND ESCORTED OFF OF UNIT. PTS GAIT IS STEADY, RESPIRATIONS CLEAR AND UNLABORED ON ROOM AIR. SKIN IS INTACT WITH 3 SURGICAL SITE INCISIONS. DRESSING ARE DRY AND INTACT. PT DID NOT COMPLAIN OF ANY PAIN AT TIME OF DISCHARGE. IV WAS TAKEN OUT WITH LUMEN INTACT AND MINIMAL BLOOD LOSS, ID BANDS REMOVED. DISCHARGE TEACHING, MEDICATION ADHERENCE, AND MD FOLLOW UP WERE GIVEN. PT VERBALIZED UNDERSTANDING AND HAD NO FURTHER QUESTIONS.
== END 2020-01-31 16:40 | disposition home or self-care (01) | DRG 710 ==
LOC: MED 07:29 → MTU 09:16
PROVIDERS: ADMIT Hospitalist; ATTEND Hospitalist
PROC: 0D9W4ZZ Drainage of Peritoneum, Percutaneous Endoscopic Approach (ICD-10-PCS; 2020-01-26)
PROC: 0DTJ4ZZ Resection of Appendix, Percutaneous Endoscopic Approach (ICD-10-PCS; principal; 2020-01-26 11:00)
DX: A41.9 Sepsis, unspecified organism (principal); K35.32 Acute appendicitis with perforation, localized peritonitis, and gangrene, without abscess; K56.7 Ileus, unspecified; F12.90 Cannabis use, unspecified, uncomplicated; F17.210 Nicotine dependence, cigarettes, uncomplicated; R00.0 Tachycardia, unspecified; K91.89 Other postprocedural complications and disorders of digestive system
CPT/HCPCS: 36415; 74018; 80053; 81003; 82374; 83690; 85025; 87081; 88304; 96361; 96365; 96375; 99285; J0330; J1100; J1170; J1885; J2270; J2405; J2543; J2550; J2704; J2765; J3490; J7030; J7060; Q0092

== ENCOUNTER 2022-01-06 22:55 | Emergency (ER) | payer OTHER ==
[~2022-01-06] VITALS: Ht 182.9 cm; Wt 90.7 kg
[2022-01-06 23:11] VITALS: BP 154/94
--- NOTE | 2022-01-06 23:35 | NUR ---
PT TAKEN TO BED 09.
--- NOTE | 2022-01-07 00:13 | NUR ---
46 Y.O M BIB SELF C/O R PERIORRBITAL EDEMA THAT PT NOTICED YESTERDY MORNING. PT STATED THAT IT WAS MORE SWOLLEN YESTERDAY. PT STATES HE HAS NOT TAKEN ANY MEDICATION FOR THE SWELLING. PT STATES PAIN IS 5/10 IN HIS CHEEK AND UNDER EYE AREA. PT STATES THAT HE HAD A FEVER YESTERDAY BUT DENIES ONE TODAY. PT RESTING IN BED. sats good. hx appendectomy nkda
--- NOTE | 2022-01-07 00:14 | NUR ---
DERRICK OCHOA AT BEDSIDE ASSESSING PT
[2022-01-07] MEDS ORDERED: CLINDAMYCIN 150 MG CAP PO ONE (00:30)
[2022-01-07] MEDS ORDERED: CLIN300C61 PO (00:36)
[2022-01-07 01:01] VITALS: BP 154/94
--- NOTE | 2022-01-07 01:03 | NUR ---
Patient discharged with v/s stable. Written and verbal after care instructions given and explained. Patient alert, oriented and verbalized understanding of instructions. Ambulatory with steady gait. All questions addressed prior to discharge. ID band removed. Patient advised to follow up with PMD. Rx of CLINDAMYCIN HCL given. Patient educated on indication of medication including possible reaction and side effects. Opportunity to ask questions provided and answered.
== END 2022-01-07 01:03 | disposition home or self-care (01) ==
LOC: MED 22:55
DX: K04.7 Periapical abscess without sinus (principal); K02.9 Dental caries, unspecified; F17.200 Nicotine dependence, unspecified, uncomplicated; Z90.49 Acquired absence of other specified parts of digestive tract
CPT/HCPCS: 99283

== ENCOUNTER 2023-06-18 17:01 | Emergency (ER) | payer OTHER ==
[~2023-06-18] VITALS: Ht 182.9 cm; Wt 88.9 kg
[~2023-06-18 17:01] MED LIST: CLIN300C61 PO
[2023-06-18 17:03] VITALS: BP 153/95; PULSE 88; RESP 18; TEMP 97.2; O2SAT 99
[2023-06-18] MEDS ORDERED: KETOROLAC 60 MG/2 ML VIAL IM ONE (17:55)
[2023-06-18 18:52] LABS: BASOPHILS % (AUTO) 0.5 % (0.0-2.0); EOSINOPHILS # (AUTO) 0.2 K/uL (0-0.4); EOSINOPHILS % (AUTO) 1.5 % (0.0-4.0); HEMATOCRIT 47.5 % (36-52); HEMOGLOBIN 15.8 g/dL (12.0-18.0); LYMPHOCYTES % (AUTO) 19.9 % (20.5-51.1); MEAN CORPUSCULAR HEMOGLOBIN 30 pg (27-31); MEAN CORPUSCULAR HGB CONC 33 g/dL (33-37); MEAN CORPUSCULAR VOLUME 89.2 fL (80-94); MONOCYTES # (AUTO) 0.7 K/uL (0.8-1.0); MONOCYTES % (AUTO) 7.3 % (1.7-9.3); NEUTROPHILS # (AUTO) 7.2 K/uL (1.8-7.7); NEUTROPHILS % (AUTO) 70.8 % (42.2-75.2); PLATELET COUNT (AUTO) 270 K/uL (140-450); RED BLOOD CELL COUNT(AUTO) 5.32 MIL/uL (4.20-6.10); RED CELL DISTRIBUTION WIDTH 14.2 % (11.6-13.7); WHITE BLOOD COUNT (AUTO) 10.2 K/uL (4.8-10.8)
[2023-06-18 19:06] LABS: ANION GAP 12.3 (8-16); CALCIUM 8.7 mg/dL (8.5-10.1); CARBON DIOXIDE 26.5 mmol/L (21-32); POTASSIUM 3.8 mmol/L (3.5-5.1); TOTAL BILIRUBIN 0.5 mg/dL (0.0-1.0); TOTAL PROTEIN, SERUM 8.3 g/dL (6.4-8.2)
[2023-06-18] MEDS ORDERED: IBUP-2213 PO (20:02)
[2023-06-18] MEDS ORDERED: ACET-8905 PO (20:02)
== END 2023-06-18 20:18 | disposition home or self-care (01) ==
LOC: MED 17:01
DX: S76.811A Strain of other specified muscles, fascia and tendons at thigh level, right thigh, initial encounter (principal); F17.200 Nicotine dependence, unspecified, uncomplicated; Z90.49 Acquired absence of other specified parts of digestive tract; X58.XXXA Exposure to other specified factors, initial encounter; Y93.89 Activity, other specified; Y92.89 Other specified places as the place of occurrence of the external cause; Y99.8 Other external cause status
CPT/HCPCS: 36415; 74176; 80053; 83690; 85025; 96372; 99285; J1885